=== PATIENT | male | born 1985 | race Caucasian/White ===

== ENCOUNTER 2024-07-23 10:06 | Emergency (ER) | payer BC, SELFPAY ==
--- NOTE | 2024-07-23 10:08 | ED.URI ---
HPI - URI/Sore Throat General Chief Complaint: Upper Respiratory Infection Stated Complaint: sinus pressure and ear pain Time Seen by Provider: 07/23/24 10:21 Source: patient, RN notes reviewed and old records reviewed Mode of arrival: ambulatory Limitations: no limitations History of Present Illness HPI Narrative: 38-year-old male presents to the [facility] with complaints of sinus congestion, chest congestion for 4 days. States his ears have been bothering him for a couple months, reports that the been draining as well. Denies fevers, body aches Has tried ivmf-vry-pyjwcim cold medicine as well as takes Claritin daily Reports that he does use Q-tips in his ears Onset (ago): day(s) (4) Treatments prior to arrival: cold medicine Related Data Home Medications Medication Instructions Recorded Confirmed loratadine 10 mg tablet (Claritin) 10 mg PO DAILY 07/23/24 07/23/24 oxcarbazepine 300 mg tablet 300 mg PO BID 07/23/24 07/23/24 sertraline 100 mg tablet 100 mg PO DAILY 07/23/24 07/23/24 Allergies Allergy/AdvReac Type Severity Reaction Status Date / Time erythromycin base AdvReac Mild Rash Verified 07/23/24 10:35 Penicillins AdvReac Mild Rash Verified 07/23/24 10:35 Review of Systems Review of Systems: All systems reviewed & are unremarkable except as noted in HPI and below Constitutional: Constitutional: Reports no additional constitutional complaints, Denies body ache(s) and Denies fever(s) Eyes: Eyes: Reports no additional eye complaints ENT: Reports as per HPI and Reports nasal congestion Cardiovascular: Cardiovascular: Reports no additional cardiovascular complaints, Denies chest pain and Denies dyspnea Respiratory: Respiratory: Reports as per HPI, Reports chest congestion, Reports cough and Denies dyspnea Gastrointestinal: Gastrointestinal: Reports no additional gastrointestinal complaints, Denies abdominal pain, Denies nausea and Denies vomiting Musculoskeletal: Musculoskeletal: Reports no additional musculoskeletal complaints Integumentary/Breasts: Skin/Breast: Reports system reviewed and no additional complaints, except as docu Neurologic: Reports system reviewed and no additional complaints, except as documented Psychiatric: Psychiatric: Reports no additional psychiatric complaints Allergic/Immunologic: Allergic/Immunologic: Reports no additional allergic/immunologic complaints PMFSH Past Medical History Medical History (Updated 07/23/24 @ 10:46 by Benita Ace APRN) Anxiety and depression Comments At the time of my signature, I reviewed and agree with the nursing past medical, surgical, social, and family history. There is no relevant family history pertinent to the patient complaint. Exam Const: General: cooperative, healthy appearing, comfortable, no acute distress, well developed, alert and well nourished Nutritional Appearance: well nourished Orientation/consciousness: patient oriented x3 Limitations: no limitations HENMT: Head: normal to inspection Ears: hearing grossly normal bilaterally, external ears normal, TM's normal bilaterally, mastoids normal, no periauricular adenopathy and Abnormal EAC present erythema on the left, edema on the left (Abrasion noted) and EAC tenderness on the left and bilateral; no foreign body and no otic discharge Face/Nose/Sinus: Normal external nose present, Normal nares present, Normal nasal mucous membranes and turbinates present, Nasal discharge present clear bilateral, normal facial exam and face symmetric Face and sinus: normal facial exam, sinuses nontender and face symmetric Mouth: Yes Normal oral and palatal mucosa present, Yes lip normal and Yes tongue normal Throat: uvula midline, postnasal drainage and no uvular edema Eyes: General: appearance normal, both eyes and all related structures Alignment and Position: alignment normal Periorbital: periorbital findings normal Pupils: Equal, round and reactive pupils present EOM: EOMs intact bilaterall
[2024-07-23 10:19] VITALS: BP 129/83; PULSE 82; RESP 18; TEMP 35.8; O2SAT 98
[2024-07-23 10:36] LABS: EDCOVIDSCREEN Negative (Negative)
== END 2024-07-23 10:43 | disposition home or self-care (01) ==
PROVIDERS: Emergency Provider Nurse Practitioner
DX: R09.82 Postnasal drip (principal); J06.9 Acute upper respiratory infection, unspecified; S00.412A Abrasion of left ear, initial encounter; X58.XXXA Exposure to other specified factors, initial encounter; Z20.822 Contact with and (suspected) exposure to COVID-19; F41.9 Anxiety disorder, unspecified; F32.A Depression, unspecified
CPT/HCPCS: 87426; 99203; G0463

== ENCOUNTER 2024-12-05 16:53 | Emergency (ER) | payer SELFPAY ==
--- NOTE | ~2024-12-05 | XR_ITS ---
EXAMINATION: XR chest 2V Exam Date/Time: 12/05/2024 17:10 [employer] HISTORY: cp Comparison: None. RESULT: Lines, tubes, and devices: None. Lungs and pleura: Clear. Cardiomediastinal silhouette: Normal. Other: No acute osseous or upper abdominal finding. IMPRESSION: No acute cardiopulmonary process. Reviewed, dictated and finalized at location K. [employer]
--- NOTE | 2024-12-05 16:55 | ECG_ITS ---
Test Date: 2024-12-05 17:02:18 Measurements Intervals [place] Rate: 68 P: 41 TN: 153 QRS: 34 QRSD: 113 T: 41 QT: 376 QTc: 400 Interpretive Statements SINUS RHYTHM EARLY PRECORDIAL R/S TRANSITION MINIMAL Q WAVES- INF/LAT LEADS BASELINE ARTIFACT- I, II, III, AVR, AVL, AVF, V1 BORDERLINE ECG No previous ECG available for comparison Electronically Signed On 12-05-2024 19:06:19 FORECLOSURE HOME INSPECTOR by Raúl Barragan D.O.
[2024-12-05 17:04] VITALS: BP 141/90; PULSE 67; RESP 17; TEMP 36.5; O2SAT 100
[2024-12-05 17:09] LABS: Basophils Absolute Auto 0.1 K/mm3 (0.0-0.1); Basophils Percent Auto 0.8 % (0.2-1.2); Eosinophils Absolute Auto 0.3 K/mm3 (0-0.3); Eosinophils Percent Auto 3.3 % (0-4.4); Hemoglobin 15.4 g/dL (14.0-18.0); Immature Granulocyte Absolute 0.02 K/mm3 (0.00-0.031); Immature Granulocyte Percent A 0.3 % (0-0.5); Lymphocytes Absolute Auto 2.48 K/mm3 (0.9-3.2); Lymphocytes Percent Auto 31.7 % (18.3-44.2); Mean Corpuscular Hemoglobin 30.5 pg (26-34); Mean Corpuscular Volume 87.1 fl (80-100); Mean Platelet Volume 8.9 fl (7.4-10.4); Monocytes Absolute Auto 0.3 K/mm3 (0.1-0.6); Monocytes Percent Auto 4.1 % (2.6-8.5); Neutrophils Absolute Auto 4.7 K/mm3 (1.3-6.7); Neutrophils Percent Auto 59.8 % (45.5-73.1); Platelet Count Result 326 k/mm3 (150-375); Red Blood Count 5.05 M/mm3 (4.6-6.20); Red Cell Distribution Width 12.9 % (11.5-14.5); White Blood Count 7.8 K/mm3 (4.5-10.0)
[2024-12-05 17:20] LABS: Alanine Aminotransferase 33 U/L (6-50); Albumin Level 4.3 g/dL (3.5-5.1); Alkaline Phosphatase 114 U/L (38-126); Anion Gap 12 mmol/L (4-12); Aspartate Amino Transferase 31 U/L (17-59); Bilirubin,Total 0.7 mg/dL (0.2-1.3); Blood Urea Nitrogen 12 mg/dL (9-20); Calcium 9.6 mg/dL (8.4-10.2); Carbon Dioxide 20 mmol/L (22-30); Chloride 106 mmol/L (98-107); Estimated CRCL calculation 137 ml/min; Estimated Glomerular Filt Rate > 60; Glucose 107 mg/dL (65-110); Lipase 69 U/L (23-300); Potassium 4.4 mmol/L (3.4-5.0); Sodium 138 mmol/L (137-145)
[2024-12-05 17:31] LABS: Troponin I < 0.012 ng/mL (0.000-0.034)
[2024-12-05 17:34] LABS: Prothrombin Time 13.7 Seconds (11.1-14.7)
[2024-12-05 17:35] LABS: Partial Thromboplastin Time 29.4 Seconds (22.3-36.8)
--- NOTE | 2024-12-05 18:17 | ED.CHESTPAIN ---
HPI - Chest Pain General Chief Complaint: Chest Pain Stated Complaint: chest pain Time Seen by Provider: 12/05/24 18:18 Focused HPI: Patient is a 38 old male who presents the ED with report of chest pain. Patient reports he was driving into work around 430 p.m. when he began having pain in his midsternal chest. Pain radiated straight through to his back. Denies aggravating or alleviating factors. He then decided to come to the ED. Pain is slightly subsided currently, but is still present. Reports history of acid reflux, but did not feel this felt similar. Reported having mild lightheadedness and shortness of breath with the pain. Denies diaphoresis, nausea, SOB over the past couple days, congestion, cough, fevers, pain or swelling BLE. Denies hx of blood clots. Denies HTN, HLD, DM. Reports FHx of heart disease in grandmother. GENERAL: Well-appearing, morbidly obese with BMI of 41.2, and in no acute distress. HEAD: Normocephalic, atraumatic. CHEST: Clear to auscultation. ?No respiratory distress. HEART: Regular rate and rhythm.? MSK: No chest wall tenderness to palpation. NEURO: ?Alert and oriented x3. Patient screened in triage and initial orders placed.? ?Additional care and disposition to be based upon?diagnostic testing and treatment. Source: patient Mode of arrival: ambulatory Limitations: no limitations Related Data Home Medications ?Medication ?Instructions ?Recorded ?Confirmed ?Last Taken ?Type loratadine 10 mg tablet (Claritin) 10 mg PO DAILY 07/23/24 07/23/24 Unknown History oxcarbazepine 300 mg tablet 300 mg PO BID 07/23/24 07/23/24 Unknown History sertraline 100 mg tablet 100 mg PO DAILY 07/23/24 07/23/24 Unknown History Allergies Allergy/AdvReac Type Severity Reaction Status Date / Time erythromycin base AdvReac Mild Rash Verified 12/05/24 17:08 Penicillins AdvReac Mild Rash Verified 12/05/24 17:08 [facility] Past Medical History Medical History (Updated 12/06/24 @ 17:23 by Annie Salazar PA-C) Anxiety and depression Course Vital Signs Vital signs: Vital Signs Temperature 97.7 F 12/05/24 17:04 Pulse Rate 67 12/05/24 17:04 Respiratory Rate 17 12/05/24 17:04 Blood Pressure 141/90 H 12/05/24 17:04 Pulse Oximetry 100 12/05/24 17:04 Oxygen Delivery Room Air 12/05/24 17:04 Temperature 97.7 F 12/05/24 17:04 Pulse Rate 67 12/05/24 17:04 Respiratory Rate 17 12/05/24 17:04 Blood Pressure 141/90 H 12/05/24 17:04 Pulse Oximetry 100 12/05/24 17:04 Oxygen Delivery Room Air 12/05/24 17:04 MDM - Chest Pain MDM Narrative Medical decision making narrative: MSE by KAREN in triage. Lab Data 12/05/24 17:03 12/05/24 17:03 Labs: Lab Results 12/05/24 Range/Units 17:03 WBC 7.8 (4.5-10.0) K/mm3 RBC 5.05 (4.6-6.20) M/mm3 Hgb 15.4 (14.0-18.0) g/dL Hct 44.0 (42.0-52.0) % MCV 87.1 (80-100) fl MCH 30.5 (26-34) pg MCHC 35.0 (32-36) g/dl RDW 12.9 (11.5-14.5) % Plt Count 326 (150-375) k/mm3 MPV 8.9 (7.4-10.4) fl Immature Gran % (Auto) 0.3 (0-0.5) % Neut % (Auto) 59.8 (45.5-73.1) % Lymph % (Auto) 31.7 (18.3-44.2) % [place] % (Auto) 4.1 (2.6-8.5) % Eos % (Auto) 3.3 (0-4.4) % Baso % (Auto) 0.8 (0.2-1.2) % Lymph # (Auto) 2.48 (0.9-3.2) K/mm3 [place] # (Auto) 0.3 (0.1-0.6) K/mm3 Eos # (Auto) 0.3 (0-0.3) K/mm3 Baso # (Auto) 0.1 (0.0-0.1) K/mm3 Abs Immat Gran (auto) 0.02 (0.00-0.031) K/mm3 Absolute Neuts (auto) 4.7 (1.3-6.7) K/mm3 Absolute Nucleated RBC 0.000 (0.0-0.012) K/mm3 Nucleated RBC % 0.0 (0.0-0.2) % PT 13.7 (11.1-14.7) Seconds INR 1.0 APTT 29.4 (22.3-36.8) Seconds D-Dimer 0.38 (<0.48) ug/mL Sodium 138 (137-145) mmol/L Potassium 4.4 (3.4-5.0) mmol/L Chloride 106 (98-107) mmol/L Carbon Dioxide 20 L (22-30) mmol/L Anion Gap 12 (4-12) mmol/L BUN 12 (9-20) mg/dL Creatinine 0.95 (0.7-1.3) mg/dL Estim Creat Clear Calc 137 ml/min Estimated GFR > 60 (59 - ) Glucose 107 (65-110) mg/dL Calcium 9.6 (8.4-10.2) mg/dL Total Bilirubin 0.7 (0.2-1.3) mg/dL AST 31 (17-59) U/L ALT 33 (6-50) U/L Alkaline Phosphatase 114 (38-126) U/L Troponin I < 0.012 (0.000-0.034) ng/mL Total Protein 8.0 (6.3-8.2) g/dL Albumin 4.3 (3.5-5.1) g/dL Lipase 69 (23-300) U/L Discharge Plan Discharge Clinical Impression: Atypical chest pain Patient Disposition: Elopement After Seen by Prov Condition: Stable Patient Language: Swedish Prescriptions: No Action sertraline 100 mg tablet 100 mg PO DAILY oxcarbazepine 300 mg tablet 300 mg PO BID loratadine [Claritin] 10 mg Tablet 10 mg PO DAILY ciprofloxacin-dexamethasone 0.3-0.1 % drops,suspension 5 drp LEFT EAR Q12H 7 Days Qty: 7.5 0RF Follow-up/Referrals: PHYSICIAN,BUSINESS UNIT MANAGER [Primary Care Provider] -
--- OUTSIDE RECORDS SUMMARY | 2024-12-05 18:36 | XMS_ITS | Clinical Summary ---
Author Organization [facility] Address [address] [place] [address] Care Team Providers Care Car Dispatcher Name Role Phone Unavailable Primary Care Provider Unavailabl e Source Comments [facility] [employer],non-owned Affiliates and Associated Physician Practices is amultiple site organization consisting of ambulatory clinics and hospital sitesin [place], [place], [place] and [place]. This disclosure is being madepursuant to the Care Everywhere program and may not contain all information available regarding this patient. Last updated 18.[facility] [employer] Immunizations Name Administration Dates Next Due Covid Pfizer primary monoval ent 12+ yr 0.3mL Purple cap 12/21/2020,11/27/2020 Social History Tobacco Use Types Packs/Day Years Used Date Smoking Tobacco: Never Assessed Sex and Gender Information Value Date Recorded Sex Assigned at Male 12/09/2020 8:39 AM RAISE DRILLER Gender Identity Male 12/09/2020 8:39 AM RAISE DRILLER Sexual Orientation Straight 12/09/2020 8: 39 AM RAISE DRILLER Plan of Treatment Health Maintenance Due Date Last Done Comments HIV SCREENING 2000 HEPATITIS C SCREENING 12/08/2003 DTAP/TDAP/TD VACCINES (1 - Tdap) 2004 HEPATITIS B VACCINE (1 of 3 - 19+ 3-dose series) 2004 COVID-19 VACCINE (3 - 2023-2 5 season) 2024 12/21/2020, 11/27/2020 INFLUENZA VACCINE (#1) 2024 09/06/2013 DEPRESSION SCREENING 10/19/2024 ZOSTER VACCINE (1 of 2) 2035 HIB VACCINE Aged Out No longer eligi ble based on patient's age to complete this topic HPV VACCINE Aged Out No longer eligi ble based on patient's age to complete this topic MENINGOCOCCAL (Group B) VACCINE Aged Out No longer eligible b ased on patient's age to complete this topic MENINGOCOCCAL VACCINE Aged Out No clif abimbola eligible based on patient's age to complete this topic PNEUMOCOCCAL VACCINE Aged Out No long er eligible based on patient's age to complete this topic
--- OUTSIDE RECORDS SUMMARY | 2024-12-05 18:36 | XMS_ITS ---
Author Organization [facility] [employer] Address [address] [place] [address] Care Team Providers Care Earrings Fabricator Name Role Phone Quirino Torres Unavailable [phone] REASON FOR VISIT Depression, 1 Follow up, PSYCHOTHERAPY W/PATIENT W/E M, 1 Follow up Medications Medication SIG (Take, Route, Frequency, Duration) Notes Start Date End Date Status OXcarbazepine 300 MG 1 tablet Oral Twice a day for 90 days do not fill until pt requests Active Sertraline HCl 100 MG 1.5 tablet Oral Once a day for 90 days do not fill until pt requests Active Social History Tobacco Use: Social History Observation Description Date Details (start date - stop date) Never Smoker NA - NA Sex Assigned At : Social History Observation Description Sex Assigned At Male Tobacco Control (Standard) Question Answer Notes Tobacco use: Nonsmoker AUDIT-C (Standard) Question Answer Notes Points 1 Did you have a drink contain ing alcohol in the past year? Yes How often did you have six o r more drinks on one occasion in the past year? Never (0 point) How many drinks did you have on a typical day when you were drinking in the past year? 1 or 2 drinks (0 point) How often did you have a dri nk containing alcohol in the past year? Monthly or less (1 point) Vital Signs Height 73.00 in 08/12/2024 Weight 309.8 lbs 08/12/2024 BMI 40.87 kg/m2 08/12/2024 Height-cm 185.42 cm 08/12/2024 Weight-kg 140.52 kg 08/12/2024 Encounters Encounter Location Date Provider Diagnosis [facility] [address] [place] [address] 08/12/2024 Quirino Torres Major depressive disorder, recurrent, unspecified F33.9 and Post-traumatic stress disorder, chronic F43.12 Assessments Encounter Date Diagnosis (ICD Code) Assessment Notes Treatment Notes Treatment Clinical Notes Section Notes 08/12/2024 Major depressive disorder, recurrent, unspecified (ICD-10 - F33.9) 08/12/2024 Post-traumatic stress disorder, chronic (ICD-10 - F43.12) Plan Of Treatment Medication Medication Name Sig Start Date Stop Date Notes OXcarbazepine 300 MG 1 tablet Oral Twice a day for 90 days do not fill until pt requests Sertraline HCl 100 MG 1.5 tablet Oral On ce a day for 90 days do not fill until pt requests Next Appt Details Follow Up: 10 w, Reason: dep ression, esthela Progress Notes * GONZALO HUERTADOB:1985 ( 38 yo M)Acc No.[id number]:08/12/2024 Patient: GONZALO XIE Provider: Flower TORRES MD :1985 A ge:38 Y S ex:Male Date:08/12/2024 Address:[address] [place], [place] [id number] Subjective: * Chief Complaints: * 1 . Depression. 2. 1 Follow up. 3. PSYCHOTHERAPY W/PATIENT W/E M. 4. 1 Follow up. 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 P sychotherapy with Med eval: Therapy with Med eval P sychotherapy with Medication management Y es, P sychotherapy done Time Spent Minute 2 0 to 30 min, T ype of therapy done S upportive Therapy. * Medical History: * Medications: T vanessag OXcarbazepine 300 MG Tablet 1 tablet Oral Twice a day , stop date 10/12/2024, Notes to Pharmacist: do not fill until pt requests, Taking Sertraline HCl 100 MG Tablet 1 tablet Oral Once a day , Notes to Pharmacist: do not fill until pt requests Objective: * Vitals: W t:309.8lbs, Wt-k.52 kg, Ht: 73.00 in, Ht-cm: 185.42 cm, BMI:40.87Index, Body Surface Area: 2.69. * Examination: P sychiatry: Appearance: w ell-groomed, well-nourished, appears stated age, obese. Affect / mood: a ppropriate, full range. Attention: g ood. Attitude: c ooperative. Suicidal ideation: n one. Memory status: n o impairment noted. Degree of awareness of surroundings: w ithin normal limits.? Delusions: n o. Hallucinations: n o. Insight: g ood. Intellectual functioning: n o impairment noted. Judgement: g ood. Orientation: a wake, alert and oriented x 3. Perceptual disorders: n o perceptual disorder noted. Psychomotor activity: w ithin normal range. Speech / language: a ppropriate pitch/modulation, clear and coherent, normal rate, volume, and articulation (RVR), proper grammar used. Thought content: a ppropriate. Thought process: i ntact. Assessment: * Assessment: 1. M ajor depressive disorder, recurrent, unspecified - F33.9 (Primary) 2 .?Post-traumatic stress disorder, chronic - F43.12 Plan: * Treatment: * Procedure Codes: 9 0833 PSYCHOTHERAPY W/PATIENT W/E&M SRVCS 30 MIN, G2211 VISIT COMPLEXITY INHERENT TO ONGOING CARE RELATED TO A PATIENT'S SINGLE, SERIOUS CONDITION OR A COMPLEX CONDITION * Follow Up: 1 0 w (Reason: depression, esthela) * Billing Information: * Visit Code: 65863 OFFICE OUTPATIENT VISIT 25 MINUTES DETAILED HISTORY AND EXAM/MODERATE MEDICAL DECISION MAKING. * Procedure Codes: 21067 PSYCHOTHERAPY W/PATIENT W/E&M SRVCS 30 MIN. G2211 VISIT COMPLEXITY INHERENT TO ONGOING CARE RELATED TO A PATIENT'S SINGLE, SERIOUS CONDITION OR A COMPLEX CONDITION. 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, has been at back-up site since May; financially stable, but unsure if in the right job, doesn't think any job would be consistently enjoyable, 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[employer]) Depression screening PHQ-9 Little interest or pleasure in doing things: Several days Feeling down, depressed, or hopeless: Se veral days Trouble falling or staying asleep, or sl eeping too much: Not at all Feeling tired or having little energy: N ot at all Poor appetite or overeating: Not at all Feeling bad about yourself o r that you are a failure, or have let yourself or your family down: Not at all Trouble concentrating on thi ngs, such as reading the newspaper or watching television: Not at all Moving or speaking so slowly that other people could have noticed; or the opposite, being so fidgety or restless that you have been moving around a lot more than usual: Not at all Thoughts that you would be b carmen off or of hurting yourself in some way: Not at all Depression Screening ESTHELA-7 (2018 Edition) Feelin g nervous, anxious, or on edge: Not at all Not being able to stop or control worryi ng: Not at all Worrying too much about different things : Not at all Trouble relaxing: Several days Being so restless that it is hard to sit still: Not at all Becoming easily annoyed or irritable: Se ver days Feeling afraid as if something awful juliet ht happen: Not at all If you checked any problems, how difficult have they made it for you to do your work, take care of things at home, or get along with other people?: Not difficult at all Psychotherapy with Med eval Therapy with Med howard l Psychotherapy with Medication management: Yes Psychotherapy done Time Spent Minute: 20 to 30 min Type of therapy done: Supportive Therapy Ida-Suicide Severity Rating Scale Suicide Risk (CSRS-screener) in the past one month Have you wished you were or wished you could go to sleep and not wake up?: No in the past one month Have y ou actually had any thoughts of killing yourself?: No Examination Category Sub-Category Detail Notes Category Not es Psychiatry Appearance: well-groomed, we ll-nourished, appears stated age, obese Attitude: cooperative Psychomotor activity: within normal rang e Attention: good Degree of awareness of surroundings: wit hin normal limits Orientation: awake, alert and jessica ented x 3 Affect / mood: appropriate, full ra nge Speech / language: appropriate pitch/mo dulation, clear and coherent, normal rate, volume, and articulation (RVR), proper grammar used Insight: good Judgement: good Thought process: intact Thought content: appropriate Perceptual disorders: no perceptual diso rder noted Suicidal ideation: none Intellectual functioning: no impairment noted Memory status: no impairment noted Delusions: no Hallucinations: no
--- OUTSIDE RECORDS SUMMARY | 2024-12-05 18:36 | XMS_ITS | Referral Summary ---
Author Organization [facility] Address [address] [place] [address] Care Team Providers Care Stock Blender Name Role Phone Unavailable Primary Care Provider Unavailabl e Source Comments [facility],non-owned Affiliates and Associated Physician Practices is amultiple site organization consisting of ambulatory clinics and hospital sitesin [place], [place], [place] and [place]. This disclosure is being madepursuant to the Care Everywhere program and may not contain all information available regarding this patient. Last updated 18.[facility] [employer] Immunizations Name Administration Dates Next Due Covlarissa German primary monoval ent 12+ yr 0.3mL Purple cap 12/21/2020,11/27/2020 Social History Tobacco Use Types Packs/Day Years Used Date Smoking Tobacco: Never Assessed Sex and Gender Information Value Date Recorded Sex Assigned at Male 12/09/2020 8:39 AM BILLET DRILLER Gender Identity Male 12/09/2020 8:39 AM BILLET DRILLER Sexual Orientation Straight 12/09/2020 8: 39 AM BILLET DRILLER Plan of Treatment Not on file
--- OUTSIDE RECORDS SUMMARY | 2024-12-05 18:36 | XMS_ITS | Patient Health Summary ---
Author Organization [facility] Address [address] [place] [address] Care Team Providers Care Vine Fruit Farming Supervisor Name Role Phone Unavailable Primary Care Provider Unavailabl e Note from [facility],non-owned Affiliates and Associated Physician Practices is amultiple site organization consisting of ambulatory clinics and hospital sitesin [place], [place], [place] and [place]. This disclosure is being madepursuant to the Care Everywhere program and may not contain all information available regarding this patient. Last updated 18.[facility] Immunizations * Covid Pfizer primary monovalent 12+ yr 0.3mL Purple cap(Given 12/21/2020, 11/27/2020) Social History Tobacco Use Types Packs/Day Years Used Date Smoking Tobacco: Never Assessed Sex and Gender Information Value Date Recorded Sex Assigned at Male 12/09/2020 8:39 AM SLEEVE BOTTOM FELLER Gender Identity Male 12/09/2020 8:39 AM SLEEVE BOTTOM FELLER Sexual Orientation Straight 12/09/2020 8: 39 AM SLEEVE BOTTOM FELLER
--- OUTSIDE RECORDS SUMMARY | 2024-12-05 18:36 | XMS_ITS ---
Author Organization [facility] [place] Address [address] [place] [address] [address] Care Team Providers Care Ruffling Hemmer Automatic Name Role Phone Quirino Frausto Unavailable [phone] REASON FOR VISIT New Refill Request Medications Medication SIG (Take, Route, Fr equency, Duration) Notes Start Date End Date Status Sertraline HCl 100 MG 1.5 tablet Oral On ce a day for 90 days Active OXcarbazepine 300 MG 1 tablet Oral Twice a day for 90 days Active Social History Sex Assigned At : Social History Observation Description Sex Assigned At Male Encounters Encounter Location Date Provider Diagnosis [facility] [address] [address] 11/25/2024 Quirino Vargaseat Major depressive disorder, recurrent, unspecified F33.9 Assessments Encounter Date Diagnosis (ICD Code) Assessment Notes Treatment Notes Treatment Clinical Notes Section Notes 11/25/2024 Major depressive disorder, recurrent, unspecified (ICD-10 - F33.9) Plan Of Treatment Medication Medication Name Sig Start Date Stop Date Notes Sertraline HCl 100 MG 1.5 tablet Oral On ce a day for 90 days OXcarbazepine 300 MG 1 tablet Oral Twice a day for 90 days Progress Notes * GONZALO HUERTADOB:1985 ( 38 yo M)Acc No.[id number]:11/25/2024 Patient: GONZALO XIE :1985 A ge:38 Y S ex:Male Address:[address] [place] [address], [address] * Refills Refill OXcarbazepine Tablet, 300 MG, Oral, 180, 1 tablet, Twice a day, 90 days, Refills=0 Refill Sertraline HCl Tablet, 100 MG, Oral, 135 Tablet, 1.5 tablet, Once a day, 90 days, Refills=0 Subjective: * Chief Complaints: * N ew Refill Request * Medical History: * Surgical History: * Hospitalization/Major Diagno stic Procedure: * Medications: Objective: * Vitals: * Physical Examination: Assessment: * Assessment: 1. M xiomy depressive disorder, recurrent, unspecified - F33.9 Plan: * Treatment: * Procedure Codes: * true * Date: Generated for Khurram ontiveros/Anne Marie/Teagansmdeepak on: 0 12/05/2024 06:36 PM ORDER DESK CLERK
--- OUTSIDE RECORDS SUMMARY | 2024-12-05 18:36 | XMS_ITS ---
Author Organization [facility] Address [address] [facility] [address] [address] Care Team Providers Care Lumber Tying Machine Operator Name Role Phone Qiurino Frausto Unavailable [phone] REASON FOR VISIT New Refill Request Medications Medication SIG (Take, Route, Frequency, Duration) Notes Start Date End Date Status Sertraline HCl 100 MG 1.5 tablet Oral Once a day for 90 days do not fill until pt requests Active OXcarbazepine 300 MG 1 tablet Oral Twice a day for 90 days do not fill until pt requests 01/08/2025 Active Social History Sex Assigned At : Social History Observation Description Sex Assigned At Male Encounters Encounter Location Date Provider Diagnosis [facility] [place] [address] [address] 10/08/2024 Quirino Frausto Major depressive disorder, recurrent, unspecified F33.9 Assessments Encounter Date Diagnosis (ICD Code) Assessment Notes Treatment Notes Treatment Clinical Notes Section Notes 10/08/2024 Major depressive disorder, recurrent, unspecified (ICD-10 - F33.9) Plan Of Treatment Medication Medication Name Sig Start Date Stop Date Notes Sertraline HCl 100 MG 1.5 tablet Oral On ce a day for 90 days do not fill until pt requests OXcarbazepine 300 MG 1 tablet Oral Twice a day for 90 days 01/08/2025 do not fill until pt requests Progress Notes * GONZALO HUERTADOB:1985 ( 38 yo M)Acc No.[id number]:10/08/2024 Patient: Carlos GONZALO OLVERA :1985 A ge:38 Y S ex:Male Address:[address] [place] [address], [address] * Refills Refill OXcarbazepine Tablet, 300 MG, [...] Physical Examination: Assessment: * Assessment: 1. M dionteor depressive disorder, recurrent, unspecified - F33.9 Plan: * Treatment: * Procedure Codes: * true * Date: Generated for Khurram ontiveros/Anne Marie/Melchor on: 0 12/05/2024 06:36 PM SYSTEMS TECHNOLOGIST
--- OUTSIDE RECORDS SUMMARY | 2024-12-05 18:37 | XMS_ITS | Continuity of Care Document ---
Author Organization [facility] Address [address] [place] [address] Phone Care Team Providers Care Brazer Crawler Torch Name Role Phone Kimberly Mckay DO Unavailable Unavailable Allergies, Adverse Reactions, Alerts Substance Reaction Status Criticality Penicillins Active No Information Procedures Procedure Date Preplacement Exam Advance Directives Directive Yes / No Effective Date File Name No Information Encounters Encounter Description Practice Location Reason(s) For Visit Diagnoses Date Provider Providers Copied on Encounter [facility], [address], [address] [place] [address], tel:[phone] No Information 4 Woody Harris. [address] [facility], [place] [address], [place], [place], [address] [place] [address] , . tel: [phone] [facility], [address] [place] [address], [id number], tel:[phone] [facility] Occupational Health Examination 4 Woody Harris. [address] [facility], [facility], [place], [place], [id number] , [place]. tel: [phone] Family History Family Member Type Diagnosis Age At Onset No Information Payers Payer name Insurance type Covered alliance party ID Authoriza tion(s) No Information Social History Type Description Quantity Date Captured Comments Sex Male Smoking Status No Information Chief Complaint And Reason For Visit No Information Reason For Referral Reason For Referral No Information History Of Present Illness Encounter Date Complaint History Of Prese nt Illness No Information Functional Status Date Functional Assessmen t No Information Instructions Date Instruction Additional Infor mation No Information Assessments Type Assessment Date No Information Patient Care Teams Name Effective Dates (start - stop) Status Members No Information
[2024-12-05 19:36] LABS: D Dimer 0.38 ug/mL (<0.48)
--- NOTE | 2024-12-05 21:30 | PC.NURSE ---
Pt came to triage nurse's station stating I feel fine, I do not have chest pain anymore and would like to go home. Pt AOx4. IV removed. Pt ambulatory.
--- OUTSIDE RECORDS SUMMARY | 2024-12-05 22:36 | XMS_ITS | Patient Health Summary ---
Author Organization [facility] Address [address] [place] [address] Care Team Providers Care Casino Floor Runner Name Role Phone Unavailable Primary Care Provider Unavailabl e Note from [facility],non-owned Affiliates and Associated Physician Practices is amultiple site organization consisting of ambulatory clinics and hospital sitesin [place], [place]. This disclosure is being madepursuant to the Care Everywhere program and may not contain all information available regarding this patient. Last updated 18.[facility] Immunizations * Covid Pfizer primary monovalent 12+ yr 0.3mL Purple cap(Given 12/21/2020, 11/27/2020) Social History Tobacco Use Types Packs/Day Years Used Date Smoking Tobacco: Never Assessed Sex and Gender Information Value Date Recorded Sex Assigned at Male 12/09/2020 8:39 AM MICROSOFT EXCHANGE ADMINISTRATOR Gender Identity Male 12/09/2020 8:39 AM MICROSOFT EXCHANGE ADMINISTRATOR Sexual Orientation Straight 12/09/2020 8: 39 AM MICROSOFT EXCHANGE ADMINISTRATOR
--- OUTSIDE RECORDS SUMMARY | 2024-12-05 22:36 | XMS_ITS | Referral Summary ---
Author Organization [facility] Address [address] [place] [address] Care Team Providers Care Special Events Manager Name Role Phone Unavailable Primary Care Provider Unavailabl e Source Comments [facility],non-owned Affiliates and Associated Physician Practices is amultiple site organization consisting of ambulatory clinics and hospital sitesin [place], [place], [place] and [place]. This disclosure is being madepursuant to the Care Everywhere program and may not contain all information available regarding this patient. Last updated 18.[facility] ReplySend Immunizations Name Administration Dates Next Due Covlarissa German primary monoval ent 12+ yr 0.3mL Purple cap 12/21/2020,11/27/2020 Social History Tobacco Use Types Packs/Day Years Used Date Smoking Tobacco: Never Assessed Sex and Gender Information Value Date Recorded Sex Assigned at Male 12/09/2020 8:39 AM SAP BI ARCHITECT Gender Identity Male 12/09/2020 8:39 AM SAP BI ARCHITECT Sexual Orientation Straight 12/09/2020 8: 39 AM SAP BI ARCHITECT Plan of Treatment Not on file
--- OUTSIDE RECORDS SUMMARY | 2024-12-05 22:36 | XMS_ITS | Encounter Summary ---
Author Organization [facility] Address [address] [place] [address] Care Team Providers Care Automotive Dismantler Name Role Phone Roberta Cheung MD Primary Care Provider None, Provider Primary Care Provider Unavaila ble Encounter Details Date Type Department Care Team (Latest Contact Info) Description 08/24/2018 Abstract [facility] , Generic Conversion, Social History Tobacco Use Types Packs/Day Years Used Date Smoking Tobacco: Never Assessed Sex and Gender Information Value Date Recorded Sex Assigned at Male 11/23/2018 8:26 AM PIT HOIST OPERATOR Legal Sex Male 5:33 PM CDT Gender Identity Male 11/23/2018 8:26 AM PIT HOIST OPERATOR Sexual Orientation Not on file documented as of this encounter Plan of Treatment Not on file documented as of this encounter Visit Diagnoses Not on filedocumented in this encounter Additional Health Concerns Infection Onset Date Last Indicated Resolved Time COVID-19 Rule Out 06/01/2020 06/01/2020 06/02/2020 6:01 PM CDT COVID-19 Rule Out 10/07/2023 10/07/2023 10/07/2023 8:17 AM PIT HOIST OPERATOR documented as of this encounter Care Teams Automotive Dismantler Relationship Specialty Start Date End Date Roberta Cheung MD PCP - General INTERNAL MEDICINE 11/23/18 09/08/23 None, ProviderMD PCP - General UNKNOWN PHYSICIAN SPECIALTY 09/09/23 documented as of this encounter
--- OUTSIDE RECORDS SUMMARY | 2024-12-05 22:36 | XMS_ITS | Clinical Summary ---
Author Organization [facility] Address [address] [place] [address] Care Team Providers Care Named Account Executive Name Role Phone None, Provider MD Primary Care Provider Unavaila ble Allergies Active Allergy Reactions Criticality Noted Date Comments Bee Venom Unknown 04/07/2013 Erythromycin Swelling 01/05/2018 Penicillins Anaphylaxis High 01/05/2018 Medications OXcarbazepine 300 MG tablet Take 1 tablet (300 mg total) by mouth 2 (two) times daily. 1 9 Active sertraline 100 MG tablet Take 1 tablet (100 mg total) by mouth daily. 2 9 Active esomeprazole (NEXIUM) 40 MG capsuleIndicatio ns:Gastroesophag eal reflux disease without esophagitis Take 1 capsule (40 mg total) by mouth every morning before breakfast. 30 capsule 1 9 Active fluticasone propionate 50 MCG/ACT nasal spray SHAKE LQ AND U 1 SPR IEN BID 0 Active albuterol sulfate HFA 108 (90 Base) MCG/ACT inhaler Inhale 2 puffs into the lungs every 6 (six) hours as needed for Shortness of breath (Cough). 1 Inhaler 0 Active Additional Information Patient not taking.Reported on 11/20/2023 EPINEPHrine (EPIPEN 2-MARSHAL) 0.3 MG/0.3ML injectionIndicat ions:Allergic to bees EpiPen 2-Marshal 0.3 MG/0.3ML Injection Solution Auto-injectorin ject as directed for allergic [id number] -[id number] 3[place]varado, OctetActive 1 each 1 1 Active naproxen 500 MG tabletIndication s:Acute pain of left knee Take 1 tablet (500 mg total) by mouth 2 (two) times daily with meals. 60 tablet 1 1 Active vitamin D3, cholecalciferol, 1.25 MG (84259 UT) capsuleIndicatio ns:Vitamin D deficiency Take 1 capsule (50,000 Units total) by mouth every 7 days. 13 capsule 1 2 Active Active Problems Problem Noted Date Diagnosed Date Morbid obesity with BMI of 4 0.0-44.9, adult ([facility]) 04/15/2022 Acute pain of left knee 03/04/2021 Bronchitis 11/29/2019 Flu-like symptoms 11/29/2019 Gastroesophageal reflux disease without esophagi tis 02/28/2019 BMI 39.0-39.9,adult 02/28/2019 Bee sting allergy 01/03/2016 Asbestos exposure 01/02/2016 Chronic cough 01/02/2016 Insomnia 08/01/2013 Fatigue 08/01/2013 Allergic rhinitis 04/06/2013 Irritable bowel syndrome 04/06/2013 Resolved Problems Problem Noted Date Diagnosed Date Resolved Date Abdominal pain 08/02/2018 07/07/2019 Epididymitis 08/02/2018 07/07/2019 Testicular pain 08/02/2018 07/07/2019 Wears glasses 04/13/2018 06/29/2020 Sore throat 01/05/2018 07/07/2019 Allergic reaction 01/02/2016 07/07/2019 Encounter for general adult medical examination without abnormal findings 07/13/2012 Immunizations Name Administration Dates Next Due Influenza (Generic) 09/06/2013 Tdap (Generic) 04/07/2013 Family History Medical History Relation Comments Cancer Father cheek Diabetes Father Cancer Maternal Grandfather pancreatic Fibromyalgia Mother Relation Status Comments Father Alive Maternal Grandfather Mother Alive Social History Tobacco Use Types Packs/Day Years Used Date Smoking Tobacco: Never Smokeless Tobacco: Never Tobacco Cessation:Counseling Given: No Alcohol Use Standard Drinks/Week Comments Yes 0 (1 standard drink = 0.6 oz pur e alcohol) AUDIT-C Answer Date Recorded Frequency of Alcohol Consumption Monthly or less 11/23/2018 Average Number of Drinks Not on file 019 Frequency of Binge Drinking Not on file 02/2019 PHQ-2 Answer Date Recorded Patient Health Questionnaire-2 Score 1 11/20/2023 Sex and Gender Information Value Date Recorded Sex Assigned at Male 11/23/2018 8:26 AM MACHINE WOOD SANDER Legal Sex Male 5:33 PM CDT Gender Identity Male 11/23/2018 8:26 AM MACHINE WOOD SANDER Sexual Orientation Not on file Last Filed Vital Signs Vital Sign Reading Time Taken Comments Blood Pressure 129/89 11/20/2023 7:15 AM MACHINE WOOD SANDER Pulse 72 11/20/2023 7:15 AM MACHINE WOOD SANDER Temperature 36.3 C (97.4 F) 11/20/2023 7:15 AM MACHINE WOOD SANDER Respiratory Rate 18 11/20/2023 7:15 AM MACHINE WOOD SANDER Oxygen Saturation 98% 11/20/2023 7:15 AM MACHINE WOOD SANDER Inhaled Oxygen Concentration - - Weight 145.2 kg (320 lb) 11/20/2023 7:15 AM MACHINE WOOD SANDER Height 185.4 cm (6' 1 ) 11/20/2023 7:15 AM MACHINE WOOD SANDER Body Mass Index 42.22 11/20/2023 7:15 AM MACHINE WOOD SANDER Plan of Treatment Health Maintenance Due Date Last Done Comments Hepatitis C 2003 Hepatitis B Vaccines (1 of 3 - 19+ 3-dose series) 2004 Annual Physical 04/12/2022 04/12/2021, 04/29/2019 DTaP, Tdap and Td Vaccines ( 2 - Td or Tdap) 04/07/2023 04/07/2013 COVID-19 Vaccine (3 - 2023-2 5 season) 2024 12/21/2020, 11/27/2020 Influenza Adult (#1) 2024 09/06/2013 PHQ-2 (Physician [place] [facility] [place] 10/19/2024 11/20/2023 PHQ-2 (Physician [place] 11/20/2024 11/20/2023 HPV Vaccines Aged Out No longer eligi ble based on patient's age to complete this topic Meningococcal B Vaccine Aged Out No l onger eligible based on patient's age to complete this topic Meningococcal Vaccine Aged Out No clif abimbola eligible based on patient's age to complete this topic Pneumococcal Vaccine: Pediatrics (0 to 5 Years) and At-Risk Patients (6 to 64 Years) Aged Out No longer eligible b ased on patient's age to complete this topic RSV Immunizations Under 20 Months Aged Out No longer eligible b ased on patient's age to complete this topic Insurance [facility] Care Teams Named Account Executive Relationship Specialty Start Date End Date None, Provider, PCP - General UNKNOWN PHYSICIAN SPECIALTY 09/09/23
--- OUTSIDE RECORDS SUMMARY | 2024-12-05 22:36 | XMS_ITS | Continuity of Care Document ---
Author Organization [facility] Address [address] [place] [address] Phone Care Team Providers Care Net Sorter Name Role Phone Kimberly Mckay DO Unavailable Unavailable Allergies, Adverse Reactions, Alerts Substance Reaction Status Criticality Penicillins Active No Information Procedures Procedure Date Preplacement Exam Advance Directives Directive Yes / No Effective Date File Name No Information Encounters Encounter Description Practice Location Reason(s) For Visit Diagnoses Date Provider Providers Copied on Encounter [facility], [address], [address] [place] [address], tel:[phone] No Information 4 Woody Harris. [address] [facility], [place] [address], [place], [place], [address] [place] [address] , . tel: [phone] [facility], [address] [place] [address], [id number], tel:[phone] [facility] Occupational Health Examination 4 Woody Harris. [address] [facility], [facility] [address], [place], [place], [id number] , [place]. tel: [phone] Family History Family Member Type Diagnosis Age At Onset No Information Payers Payer name Insurance type Covered democrat ID Authoriza tion(s) No Information Social History [...]
--- OUTSIDE RECORDS SUMMARY | 2024-12-05 22:36 | XMS_ITS | Clinical Summary ---
Author Organization [facility] Address [address] [place] [address] Care Team Providers Care Supervisor Reinforced Steel Placing Name Role Phone Unavailable Primary Care Provider Unavailabl e Source Comments [facility],non-owned Affiliates and Associated Physician Practices is amultiple site organization consisting of ambulatory clinics and hospital sitesin [place], [place]. This disclosure is being madepursuant to the Care Everywhere program and may not contain all information available regarding this patient. Last updated 18.[facility] Immunizations Name Administration Dates Next Due Covid Pfizer primary monoval ent 12+ yr 0.3mL Purple cap 12/21/2020,11/27/2020 Social History Tobacco Use Types Packs/Day Years Used Date Smoking Tobacco: Never Assessed Sex and Gender Information Value Date Recorded Sex Assigned at Male 12/09/2020 8:39 AM PENSION MANAGER Gender Identity Male 12/09/2020 8:39 AM PENSION MANAGER Sexual Orientation Straight 12/09/2020 8: 39 AM PENSION MANAGER Plan of Treatment Health Maintenance Due Date [...]
--- OUTSIDE RECORDS SUMMARY | 2024-12-05 22:36 | XMS_ITS | Encounter Summary ---
Author Organization [facility] Address [address] [place] [address] Care Team Providers Care Dispute Resolution Specialist Name Role Phone Roberta Cheung MD Primary Care Provider None, Provider Primary Care Provider Unavaila ble Encounter Details Date Type Department Care Team (Late st Contact Info) Description 03/06/2014 Abstract [facility] [address] [place] [address] , Generic Conversion, Social History Tobacco Use Types Packs/Day Years Used Date Smoking Tobacco: Never Assessed Sex and Gender Information Value Date Recorded Sex Assigned at Male 11/23/2018 8:26 AM COMPUTER FIELD TECHNICIAN Legal Sex Male 5:33 PM CDT Gender Identity Male 11/23/2018 8:26 AM COMPUTER FIELD TECHNICIAN Sexual Orientation Not on file documented as of this encounter Plan of Treatment Not on file documented as of this encounter Visit Diagnoses Not on filedocumented in this encounter Additional Health Concerns Infection Onset Date Last Indicated Resolved Time COVID-19 Rule Out 06/01/2020 06/01/2020 06/02/2020 6:01 PM CDT COVID-19 Rule Out 10/07/2023 10/07/2023 10/07/2023 8:17 AM COMPUTER FIELD TECHNICIAN documented as of this encounter Care Teams Dispute Resolution Specialist Relationship Specialty Start Date End Date Roberta Cheung MD PCP - General INTERNAL MEDICINE 2/5/19 11/21/23 None, Provider, MD PCP - General UNKNOWN PHYSICIAN SPECIALTY 09/09/23 documented as of this encounter
--- OUTSIDE RECORDS SUMMARY | 2024-12-05 22:36 | XMS_ITS | Patient Health Record ---
Author Organization [facility] [place] Address [address] [facility] [address] [place] [address] Care Team Providers Care Thrill Performer Name Role Phone Quirino Frausto Unavailable [phone] Migration, Provider Unavailable Unavailable Allergies Allergen (clinical drug ingredient) Drug/Non Drug Allergy documented on EMR Reaction Allergy Type Onset Date Status Insect venom INSECT VENOM (uncoded) Unknown Allergy 03/02/2024 Active Substance with penicillin structure and antibacterial mechanism of action (substance) Penicillins Unknown Drug Allergy 03/02/2024 Active Results Component Value Reference Range Notes DRUG SCREEN, 14 DRUGS (DETEC TIMED), URINE Reviewed date:01/21/2024 12:00:00 AM Interpretation: Performing Lab: Notes/Report: Amphetamine negative Barbiturates negative Benzodiazipine negative Buprenorphine negative Cocaine negative MDMA/Ectasy negative Methadone negative Methamphetamine negative Morphine negative Oxycodone negative Phenocyclidine negative THC negative Reason For Referral No Information Medications Medication SIG (Take, Route, Fr equency, Duration) Notes Start Date End Date Status Sertraline HCl 100 MG 1.5 tablet Oral On ce a day for 90 days Active OXcarbazepine 300 MG 1 tablet Oral Twice a day for 90 days Active Social History Tobacco Use: Social History [...] past year? Monthly or less (1 point) Problems Problem Type SNOMED Code ICD Code Onset Dates Problem Status W/U Status Risk Notes Problem Recurrent major depression (95339807) Major depressive disorder, recurrent, unspecified (F33.9) 4 Active confirmed Problem Posttraumatic stress disorder (01721579) Post-traumatic stress disorder, chronic (F43.12) 4 Active confirmed Vital Signs Heart Rate 95 /min 04/20/2024 Height-cm 185.42 cm 08/12/2024 Blood pressure diastolic 78 mm Hg 04/20/2024 Weight-kg 140.52 kg 08/12/2024 Height 73.00 in 08/12/2024 Blood pressure systolic 113 mm Hg 04/20/2024 Weight 309.8 lbs 08/12/2024 BMI 40.87 kg/m2 08/12/2024 Encounters Encounter Location Date Provider Diagnosis [facility] [address] [address] 01/21/2024 Thena Jett Post-traumatic stress disorder, chronic F43.12 and Major depressive disorder, recurrent, unspecified F33.9 [facility] [id number] [address] 03/02/2024 Thena Jett Post-traumatic stress disorder, chronic F43.12 and Major depressive disorder, recurrent, unspecified F33.9 [facility] [address] [address] 04/20/2024 Thena Jett Post-traumatic stress disorder, chronic F43.12 and Major depressive disorder, recurrent, unspecified F33.9 [facility] [address] [address] 08/12/2024 Thena Jett Major depressive disorder, recurrent, unspecified F33.9 and Post-traumatic stress disorder, chronic F43.12 [facility] [address] [address] 12/10/2023 Provider Migration [facility] [address] [address] 01/20/2024 Provider Migration [facility], [facility] [address] [facility] [address] [address] 01/21/2024 Provider Migration [facility], [place] [address] [facility] [address] [address] 01/22/2024 Provider [facility], [address] [address] 03/05/2024 Provider Migration [facility], [address] [address] 03/06/2024 Provider Migration [facility], [address] [address] 07/13/2024 Thena Jett Major depressive disorder, recurrent, unspecified F33.[address] [address] 10/08/2024 Thena Jett Major depressive disorder, recurrent, unspecified F33.[address] [address] 11/25/2024 Thena Jett Major depressive disorder, recurrent, unspecified F33.9 Assessments Encounter Date Diagnosis (ICD Code) Assessment Notes Treatment Notes Treatment Clinical Notes Section Notes 08/12/2024 Major depressive disorder, recurrent, unspecified (ICD-10 - F33.9) 08/12/2024 Post-traumatic stress disorder, chronic (ICD-10 - F43.12) 10/08/2024 Major depressive disorder, recurrent, unspecified (ICD-10 - F33.9) 11/25/2024 Major depressive disorder, recurrent, unspecified (ICD-10 - F33.9) 01/21/2024 Major depressive disorder, recurrent, unspecified (ICD-10 - F33.9) 01/21/2024 Post-traumatic stress disorder, chronic (ICD-10 - F43.12) 03/02/2024 Major depressive disorder, recurrent, unspecified (ICD-10 - F33.9) 03/02/2024 Post-traumatic stress disorder, chronic (ICD-10 - F43.12) 04/20/2024 Major depressive disorder, recurrent, unspecified (ICD-10 - F33.9) 04/20/2024 Post-traumatic stress disorder, chronic (ICD-10 - F43.12) 07/13/2024 Major depressive disorder, recurrent, unspecified (ICD-10 - F33.9) Plan Of Treatment No Information Insurance Providers Payer Name Payer Address Payer Phone Subscriber Number Group Number Insured Name Patient Relationship to Insured Coverage Start Date Coverage End Date [employer] [address] [place] [address] [id number] GONZALO HUERTA Self - patient is the insured [facility] [address] [place] [address] [id number] GONZALO HUERTA Self - patient is the insured Medical (General) History Medical History History ICD Code Problems: Chronic post-traumatic stress disorder Chronic recurrent major depressive disor marlin , Surgical History Surgery Date(Month/Year) Sinus surgery
== END 2024-12-05 21:30 | disposition left against medical advice (07) ==
PROVIDERS: Emergency Medicine; Emergency Provider Physician Assistant
DX: R07.89 Other chest pain (principal); F41.9 Anxiety disorder, unspecified; F32.A Depression, unspecified
CPT/HCPCS: 36415; 71046; 80053; 83690; 84484; 85025; 85380; 85610; 85730; 93005; 99284